=== PATIENT | female | born 1960 | race Caucasian/White ===

== ENCOUNTER 2016-10-19 19:19 | Emergency (ER) | payer MEDICARE, MEDICAID ==
--- NOTE | ~2016-10-19 | ER ---
[facility] 56 Y [address] ROOM: [place] [address] LOCATION: ED ADMIT DATE: 10/19/2016 ER/Outpatient Report DISCHARGE DATE: 10/19/2016 FAMILY PHYSICIAN: Becky Jorge ATTENDING PHYSICIAN: Duarte Tse Admission date and time documented on the medical record. I saw the patient at 1945 hours. CHIEF COMPLAINT: Mid upper abdominal pain, low back pain, and headache. HISTORY OF PRESENT ILLNESS: This patient is a 55-year-old female, who over the past 12 hours has had some low back pain and some mid upper abdominal pain along with a headache. No nausea, vomiting, or diarrhea. No fever, chills, sweats, coughs, colds, or flus. No lightheadedness, dizziness, syncope, or near syncope. Headache is generalized. No eyes, ears, nose, throat, or neck pain. No chest pain or shortness of breath. No joint or muscle swelling, redness, or pain. No skin eruptions or rash. HOME MEDICATIONS: See attached medication list. ALLERGIES: NONE. SOCIAL HISTORY: Nonsmoker. Nondrinker. SIGNIFICANT PAST MEDICAL HISTORY: Nxh-jlpkdmo-ctxuqbaga diabetes mellitus type 2, hypertension, and dyslipidemia. OPERATIONS: Cholecystectomy, hysterectomy, and colon surgery. REVIEW OF SYSTEMS: All systems reviewed by me are negative with the exception of those discussed in the history of present illness. PHYSICAL EXAMINATION: VITAL SIGNS: Temperature 97.9, pulse 95, respirations 14, blood pressure 202/110, and O2 saturation on room air is 98%. HEAD: Normocephalic. PATIENT'S NAME: MARKO BETHEA [facility] AGE: 56 Y [address] ROOM: [place] [address] LOCATION: [facility] ADMIT DATE: 10/19/2016 ER/Outpatient Report DISCHARGE DATE: 10/19/2016 FAMILY PHYSICIAN: Becky Jorge ATTENDING PHYSICIAN: Duarte Tse EYES, EARS, NOSE, THROAT: Clear. Mucous membranes moist. NECK: Negative. SPINE: Negative. LUNGS: Clear. HEART: Regular. Pulses are palpable. No chest wall or ribcage pain to palpation. ABDOMEN: Large obese abdomen. Soft. Some tenderness in the epigastric region. No true guarding or rigidity. No rebound tenderness. No palpable masses. No organomegaly. No CVA tenderness. EXTREMITIES: Intact. NEUROVASCULAR: Intact. SKIN: Clear. LABORATORY DATA AND X-RAYS: Three-way abdominal x-ray showed no perforation, obstruction, or acute lung infiltrate. CBC showed a white count of 7100, 64 segs, 28 lymphs, 6 monos, 1 eo, 1 baso, hemoglobin is 14.3 with hematocrit of 41.4, and platelet count was 165,000. CMS was normal except for a low potassium of 3.6 and elevated glucose of 276. Amylase and lipase were normal. CRP was 0.56. EMERGENCY DEPARTMENT COURSE: We did give the patient a GI cocktail orally in the emergency department. Gave her Toradol 60 mg plus Phenergan 50 mg IM in the emergency department. The patient did better. IMPRESSION: 1. Mid epigastric pain. 2. Low back pain. 3. Hypertension. 4. Fir-ojhbrri-qjajmtymq diabetes mellitus. PLAN: The patient dismissed home. Observation. Activity as tolerated. Continue present home medications and care. Prevacid 30 mg once a day for a month. Follow up with personal physician as scheduled or sooner if needed. Discussion ensued with the patient concerning my findings and recommendations, she understands. MD TREMAINE MORAES/modl PATIENT'S NAME: MARKO BETHEA [facility] AGE: 56 Y [address] ROOM: [place] [address] LOCATION: [facility] ADMIT DATE: 10/19/2016 ER/Outpatient Report DISCHARGE DATE: 10/19/2016 FAMILY PHYSICIAN: Becky Jorge ATTENDING PHYSICIAN: Duarte Tse /[id number] d: 10/20/167 t: 10/20/16 180, OUTPATIENT REPORT
[~2016-10-19 19:19] MED LIST: ADVIL200 M2 PO; CIPRO500 MG PO; FLAGYL500 M1 PO; GLUCOPHAGE500 MG PO; LOTENSIN HCT 21 EAC1 PO; PRAVACHOL20 MG PO; TYLENOL325 MG PO
[2016-10-19 20:13] LABS: BASOPHIL % 0.6 %; EOSINOPHIL % 0.6 %; HEMATOCRIT 41.4 % (33.0-46.0); HEMOGLOBIN 14.3 g/dL (10.0-15.0); IMMATURE GRANULOCYTE # 0.1 K/uL (0.0-0.3); IMMATURE GRANULOCYTE % 1.1 %; LYMPHOCYTE % 27.9 %; MCH 31.4 pg (27.0-34.0); MCHC 34.5 gm/dL (32.0-36.5); MCV 90.8 fl (83.0-98.0); MONOCYTE # 0.4 K/uL (0.0-1.0); MONOCYTE % 5.5 %; MPV 12.3 fl (9.4-12.4); NEUTROPHIL # (ANC) 4.6 K/uL (1.8-7.8); NEUTROPHIL % 64.3 %; NRBC % 0 /100WBC (0-0.00); PLATELET COUNT 165 K/uL (150-450); RBC 4.56 M/uL (3.50-5.50); RDW-CV 12.8 % (11.9-14.6); WBC 7.1 K/uL (4.0-11.0)
[2016-10-19 20:30] LABS: ALBUMIN 3.8 gm/dL (3.5-5.0); ALK PHOS 87 IU/L (33-138); ALT 45 IU/L (12-78); ANION GAP 14.6 (10.0-19.0); AST 33 IU/L (10-40); BLOOD UREA NITROGEN 16 mg/dL (6-24); CALCIUM 8.7 mg/dL (8.5-10.5); CHLORIDE 103 mMol/L (96-110); CO2 26 mMol/L (22-32); CREATININE 0.9 mg/dL (0.5-1.1); ESTIMATED GFR (MDRD EQUATION) > 60; POTASSIUM 3.6 mMol/L (3.7-5.1); SODIUM 140 mMol/L (135-145); TOTAL BILIRUBIN 1.4 mg/dL (0.0-1.5); TOTAL PROTEIN 7.5 g/dL (6.0-8.4)
== END 2016-10-19 20:50 | disposition disaster alternative care site (69) ==
LOC: GMED 19:19
PROVIDERS: Emergency Medicine
DX: R10.13 Epigastric pain (principal); M54.5 Low back pain; I10 Essential (primary) hypertension; E11.9 Type 2 diabetes mellitus without complications; E78.5 Hyperlipidemia, unspecified; Z90.49 Acquired absence of other specified parts of digestive tract; Z98.890 Other specified postprocedural states
CPT/HCPCS: J1885; J2550

== ENCOUNTER 2017-02-09 10:44 | Emergency (ER) | payer MEDICARE, MEDICAID ==
--- NOTE | ~2017-02-09 | ER ---
[facility] 56 [facility] [address] ROOM: [place] [address] LOCATION: [facility] ADMIT DATE: 02/09/2017 ER/Outpatient Report DISCHARGE DATE: 02/09/2017 FAMILY PHYSICIAN: Becky Jorge ATTENDING PHYSICIAN: Phillip Sim TIME OF ARRIVAL: 1044 hours. TIME OF EVALUATION: 1044 hours. CHIEF COMPLAINT: High blood pressure. HISTORY OF PRESENT ILLNESS: The patient is a 56-year-old female who presents to the emergency department today with a chief complaint of high blood pressure. The patient was scheduled for a stress test in the stress test lab. She was found to have blood pressures in the 240s over 130s. She was asymptomatic at that time. Dr. Dee did see and evaluated her and recommended sending her down to the emergency department for further evaluation and treatment. The patient denies any symptoms. No chest pain. No shortness of breath. No fevers or chills. No nausea, vomiting, diarrhea, or constipation. She denies any leg swelling. 0/10 pain. She did not take her beta-helder this morning obviously for the stress test. PAST MEDICAL HISTORY: Wbw-aczcegh-zsntgbslj diabetes and hypertension. PAST SURGICAL HISTORY: Hysterectomy and cholecystectomy. SOCIAL HISTORY: The patient denies any tobacco, alcohol, or illicit drug use. ALLERGIES: NO KNOWN DRUG ALLERGIES. MEDICATIONS: Please see list. PRIMARY CARE DOCTOR: CYNTHIA Bloom. PATIENT'S NAME: NEEMA [facility] AGE: 56 Y [address] ROOM: [place] [address] LOCATION: [facility] ADMIT DATE: 02/09/2017 ER/Outpatient Report DISCHARGE DATE: 02/09/2017 FAMILY PHYSICIAN: Becky Jorge ATTENDING PHYSICIAN: Phillip Sim REVIEW OF SYSTEMS: All systems are reviewed by myself and are negative with the exception of those discussed in HPI and past medical history. PHYSICAL EXAMINATION: VITAL SIGNS: Weight 90.3 kg. Blood pressure 240/132, pulse 78, respiratory rate 16, temperature 98.0, and oxygen saturation 97% on room air. GENERAL: The patient is a 56-year-old female, who appears stated age with mild developmental delay. NECK: Supple. There is no nuchal rigidity. CARDIOVASCULAR: Regular rate and rhythm. No murmurs, rubs, or gallops. HEENT: Normocephalic and atraumatic. Pupils are equal, round, and reactive to light. LUNGS: Clear to auscultation bilaterally. No wheezes, rales, or rhonchi. ABDOMEN: Soft, nontender, and nondistended. No rebound, rigidity, or guarding. MUSCULOSKELETAL: The patient moves all 4 extremities. SKIN: Warm and dry. There is no pretibial edema. LABORATORY DATA AND X-RAYS: Labs and x-rays are obtained. CBC is unremarkable except for platelet 145. Coags are normal. CMP is normal except for glucose 217. LFTs normal. Magnesium is 1.6. Cardiac enzymes are normal. ProBNP is normal. Urinalysis shows 250 glucose and 15 protein. EKG shows sinus rhythm with a rate of 71, normal axis, and normal interval. No ST elevation, ST depression, or T-wave inversions. Two-view chest x-ray shows no acute process. IMPRESSION: 1. Asymptomatic hypertension. 2. Initial visit. EMERGENCY DEPARTMENT COURSE: The patient was brought back to the examination room. Seen and evaluated by myself. Laboratory analysis and imaging are obtained as described above. The patient is given Norvasc 10 mg p.o. as well as labetalol 20 mg IV. The patient's blood pressure is 177/91. She remained symptom free here in the emergency department. I have discussed the case with Dr. Dee. He has recommended Norvasc for home. He would like to see the patient in 1 week for followup and then will schedule a stress test. He has recommended follow up with Dr. Becky Jorge in 1 to 2 days. I have discussed the case with Dr. Becky Jorge. I have discussed return to care instructions including chest pain, shortness of breath, or any other concerns to return to the emergency department as soon as possible. The patient is agreeable without further questions. PATIENT'S NAME: MARKO BETHEA [facility] AGE: 56 Y [address] ROOM: [place] [address] LOCATION: [facility] ADMIT DATE: 02/09/2017 ER/Outpatient Report DISCHARGE DATE: 02/09/2017 FAMILY PHYSICIAN: Becky Jorge ATTENDING PHYSICIAN: Phillip Sim DISPOSITION: The patient is discharged to home in good condition. DO JENNY AHMADI/john /[id number] d: 02/09/17 1500 t: 02/10/17 1448, OUTPATIENT REPORT
[2017-02-09 11:17] LABS: BASOPHIL % 0.7 %; EOSINOPHIL # 0.1 K/uL (0.0-0.5); EOSINOPHIL % 1.5 %; HEMATOCRIT 39.7 % (33.0-46.0); IMMATURE GRANULOCYTE # 0.1 K/uL (0.0-0.3); LYMPHOCYTE # 1.7 K/uL (0.8-4.0); LYMPHOCYTE % 28.7 %; MCH 31.7 pg (27.0-34.0); MCHC 35.3 gm/dL (32.0-36.5); MONOCYTE # 0.4 K/uL (0.0-1.0); MONOCYTE % 6.1 %; NEUTROPHIL # (ANC) 3.6 K/uL (1.8-7.8); NRBC % 0 /100WBC (0-0.00); PLATELET COUNT 145 K/uL (150-450); RBC 4.41 M/uL (3.50-5.50); RDW-CV 12.1 % (11.9-14.6); WBC 5.9 K/uL (4.0-11.0)
[2017-02-09 11:20] LABS: INR - (THERAPEUTIC) 0.95 (0.92-1.07); PTT 24 SECONDS (25-32)
[2017-02-09 11:30] LABS: ALBUMIN 3.6 gm/dL (3.5-5.0); ALK PHOS 85 IU/L (33-138); ALT 35 IU/L (12-78); ANION GAP 10.7 (10.0-19.0); AST 25 IU/L (10-40); BLOOD UREA NITROGEN 10 mg/dL (6-24); CALCIUM 8.4 mg/dL (8.5-10.5); CHLORIDE 104 mMol/L (96-110); CO2 27 mMol/L (22-32); CPK 69 IU/L (21-215); CREATININE 0.8 mg/dL (0.5-1.1); MAGNESIUM 1.6 mg/dL (1.8-2.6); POTASSIUM 3.7 mMol/L (3.7-5.1); SODIUM 138 mMol/L (135-145); TOTAL BILIRUBIN 1.2 mg/dL (0.0-1.5); TOTAL PROTEIN 7.3 g/dL (6.0-8.4)
[2017-02-09 11:37] LABS: BILIRUBIN URINE NEGATIVE (NEGATIVE); BLOOD URINE NEGATIVE /UL (NEGATIVE); COLOR URINE YELLOW (YELLOW); GLUCOSE URINE 250 mg/dL (NEGATIVE); KETONE URINE NEGATIVE (NEGATIVE); LEUKOCYTES URINE NEGATIVE /UL (NEGATIVE); NITRITE URINE NEGATIVE (NEGATIVE); PROTEIN URINE 15 mg/dL (NEGATIVE); SPEC GRAVITY URINE 1.015 (1.003-1.035); TURBIDITY URINE CLEAR (CLEAR); UROBILINOGEN URINE NORMAL (NORMAL)
[2017-02-09 11:59] LABS: RBC URINE NEGATIVE #/HPF (NEGATIVE); WBC URINE 0-2 #/HPF (NEGATIVE)
[2017-02-09 12:00] LABS: AMORPHOUS URINE 2+ (NEGATIVE); BACTERIA URINE FEW (NEGATIVE); MUCUS URINE 1+ (NEGATIVE)
== END 2017-02-09 12:59 | disposition disaster alternative care site (69) ==
LOC: GMED 10:44
PROVIDERS: Emergency Medicine
DX: I10 Essential (primary) hypertension (principal); E11.9 Type 2 diabetes mellitus without complications; Z90.49 Acquired absence of other specified parts of digestive tract; Z90.710 Acquired absence of both cervix and uterus; Z79.899 Other long term (current) drug therapy; Z79.84 Long term (current) use of oral hypoglycemic drugs

== ENCOUNTER → 2017-02-09 | Outpatient (CLI) | payer MEDICARE, MEDICAID | END | disposition disaster alternative care site (69) | LOC: GRAD 02-02 07:15 | DX: R07.9 Chest pain, unspecified (principal); I10 Essential (primary) hypertension ==

== ENCOUNTER 2017-02-24 20:08 | Emergency (ER) | payer MEDICARE, MEDICAID ==
--- NOTE | ~2017-02-24 | ER ---
PATIENT'S NAME: MARKO BETHEA [facility] AGE: 56 Y [address] ROOM: [place] [address] LOCATION: [facility] ADMIT DATE: 02/24/2017 ER/Outpatient Report DISCHARGE DATE: 02/24/2017 FAMILY PHYSICIAN: Becky Jorge ATTENDING PHYSICIAN: Duarte Tse Admission date and time documented in the medical record. I saw the patient at 2020 hours. CHIEF COMPLAINT: Rash. HISTORY OF PRESENT ILLNESS: The patient is a 56-year-old female who has had a rash underneath both breasts over the past 2 days. She has been using some medicated powder without improvement. It agarwal and stings. No fever, chills, or sweats. No other rash that she has noted on her body. HOME MEDICATIONS: See attached medication list. ALLERGIES: NONE. SOCIAL HISTORY: Nonsmoker and nondrinker. SIGNIFICANT PAST MEDICAL HISTORY: Hypertension, insulin-dependent diabetes mellitus type 2. OPERATIONS: Hysterectomy and cholecystectomy. REVIEW OF SYSTEMS: All systems reviewed by me are negative with the exception of those discussed in the history of present illness. PHYSICAL EXAMINATION: VITAL SIGNS: Temperature 98.7, tympanic; pulse 102; respirations 18; blood pressure 162/92; O2 saturation on room air is 99%. SKIN: On examination, the patient has a red, inflamed rash underneath both breasts with satellite lesions around the areas. Tender, no swelling, no red streaking. IMPRESSION: PATIENT'S NAME: MARKO BETHEA [facility] AGE: 56 Y [address] ROOM: [place] [address] LOCATION: [facility] ADMIT DATE: 02/24/2017 ER/Outpatient Report DISCHARGE DATE: 02/24/2017 FAMILY PHYSICIAN: Becky Jorge ATTENDING PHYSICIAN: Duarte Tse Yeast dermatitis underneath both breasts. PLAN: The patient dismissed home. Observation. Activity as tolerated. Continue present home medications and care. Cleanse the area under both breasts with mild soap and water every morning until healed, Mycolog ointment apply 2-3 times a day. Follow up with personal physician in 7-10 days if needed. Discussion ensued with the patient concerning my findings and recommendations, she understands. MD TREMAINE MORAES/john /[id number] d: 02/25/17 0213 t: 02/25/17 1821, OUTPATIENT REPORT
== END 2017-02-24 20:36 | disposition disaster alternative care site (69) ==
LOC: GMED 20:08
DX: B37.2 Candidiasis of skin and nail (principal); I10 Essential (primary) hypertension; E11.9 Type 2 diabetes mellitus without complications; Z79.84 Long term (current) use of oral hypoglycemic drugs; Z79.82 Long term (current) use of aspirin; Z79.899 Other long term (current) drug therapy

== ENCOUNTER → 2017-02-27 | Outpatient (CLI) | payer MEDICARE, MEDICAID | END | disposition disaster alternative care site (69) | LOC: GRAD 08:10 | DX: I16.0 Hypertensive urgency (principal) ==